=== PATIENT | female | born 1990 | race Caucasian/White ===

== ENCOUNTER 2019-08-16 07:43 | Emergency (ER) | payer SELFPAY ==
[~2019-08-16] VITALS: Ht 152.4 cm; Wt 63.6 kg
[2019-08-16 08:22] LABS: HEMATOCRIT 44.8 % (37.0-47.0); HEMOGLOBIN 15.1 g/dL (12.5-16.0); MEAN CELL VOLUME 94 fl (78-100); MEAN CORPUSCULAR HEMOGLOBIN 32 pg (27-31); MEAN CORPUSCULAR HGB CONC 34 g/dL (33-37); MEAN PLATELET VOLUME 10.5 fl (7.4-10.4); PLATELET COUNT 223 K/mm3 (130-400); RED BLOOD COUNT 4.76 M/mm3 (4.10-5.30); RED CELL DISTRIBUTION WIDTH 12.8 % (11.5-14.5); WHITE BLOOD COUNT 17.5 K/mm3 (4.8-10.8)
[2019-08-16 08:31] LABS: ALBUMIN 4.7 g/dL (3.5-5.0); BAND 2 % (0-10); LYMPHOCYTE 7 % (20-51); MONOCYTE 5 % (3-10); NEUTROPHILS 86 % (42-75); POTASSIUM 3.2 mmol/L (3.5-5.1)
[2019-08-16 08:32] LABS: CALCIUM 9.5 mg/dL (8.3-10.5)
[2019-08-16 08:34] LABS: TOTAL PROTEIN 7.4 g/dL (6.4-8.3)
[2019-08-16 08:35] LABS: TOTAL BILIRUBIN 0.7 mg/dL (0.2-1.2)
[2019-08-16 09:14] LABS: URINE APPEARANCE HAZY; URINE BILIRUBIN NEGATIVE (NEGATIVE); URINE BLOOD NEGATIVE (NEGATIVE); URINE COLOR YELLOW; URINE GLUCOSE NEGATIVE (NEGATIVE); URINE KETONE 2+ (NEGATIVE); URINE LEUKOCYTE ESTERASE TRACE (NEGATIVE); URINE NITRATE NEGATIVE (NEGATIVE); URINE PROTEIN(semi-quant) TRACE mg/dL (NEGATIVE); URINE UROBILINOGEN NORMAL (NORMAL)
[2019-08-16] MEDS ORDERED: ZOFRAN ODT4 MG PO (12:48)
[2019-08-16] MEDS ORDERED: SEPTRA DS 8001 TAB PO (12:48)
[2019-08-16] MEDS ORDERED: GOOD NEIGHBOR P20 M1 PO (12:54)
[2019-08-16 13:05] VITALS: BP 100/66
== END 2019-08-16 13:06 | disposition home or self-care (01) ==
LOC: ED 07:43
PROVIDERS: Family Medicine
DX: K52.9 Noninfective gastroenteritis and colitis, unspecified (principal); N39.0 Urinary tract infection, site not specified; F17.210 Nicotine dependence, cigarettes, uncomplicated; Z87.440 Personal history of urinary (tract) infections
CPT/HCPCS: A4216; J0696; J1885; J2405; J2765; J3490; J7030

== ENCOUNTER → 2022-01-27 | Outpatient (CLI) | payer SELFPAY ==
[~2022-01-27] MED LIST: GOOD NEIGHBOR P20 M1 PO; SEPTRA DS 8001 TAB PO; ZOFRAN ODT4 MG PO
== END ==
LOC: LAB 11:08
DX: Z01.89 Encounter for other specified special examinations (principal)

== ENCOUNTER → 2022-01-27 | Outpatient (CLI) | payer SELFPAY ==
[2022-01-27 11:39] LABS: ALBUMIN 4.2 g/dL (3.5-5.0); POTASSIUM 3.7 mmol/L (3.5-5.1)
[2022-01-27 11:40] LABS: CALCIUM 9.2 mg/dL (8.3-10.5)
[2022-01-27 11:42] LABS: TOTAL PROTEIN 6.7 g/dL (6.4-8.3)
[2022-01-27 11:43] LABS: TOTAL BILIRUBIN 0.8 mg/dL (0.2-1.2)
[2022-01-27 11:53] LABS: BASO # 0.02 K/mm3 (0.02-0.10); EOS # 0.13 K/mm3 (0.04-0.40); EOS % 1.7 % (1.0-5.0); HEMATOCRIT 42.1 % (37.0-47.0); HEMOGLOBIN 13.9 g/dL (12.5-16.0); MEAN CELL VOLUME 96 fl (78-100); MEAN CORPUSCULAR HEMOGLOBIN 32 pg (27-31); MEAN CORPUSCULAR HGB CONC 33 g/dL (33-37); MEAN PLATELET VOLUME 9.7 fl (7.4-10.4); MONO # 0.63 K/mm3 (0.20-0.80); NEU # 5.32 K/mm3 (1.40-6.50); PLATELET COUNT 212 K/mm3 (130-400); RED BLOOD COUNT 4.39 M/mm3 (4.10-5.30); RED CELL DISTRIBUTION WIDTH 12.4 % (11.5-14.5); WHITE BLOOD COUNT 7.8 K/mm3 (4.8-10.8)
== END ==
LOC: LAB 11:11
PROVIDERS: Nurse Practitioner Family
DX: R20.2 Paresthesia of skin (principal); Z87.39 Personal history of other diseases of the musculoskeletal system and connective tissue